=== PATIENT | female | born 1965 | race Caucasian/White ===

== ENCOUNTER 2025-07-06 13:58 | Emergency (ER) | payer OTHER ==
[~2025-07-06] VITALS: Ht 160 cm; Wt 68.0 kg
[2025-07-06 14:17] LABS: PLATELET COUNT (AUTO) 282 K/uL (179-408); RED BLOOD CELL COUNT(AUTO) 5.03 MIL/uL (3.63-4.92); RED CELL DISTRIBUTION WIDTH 13.3 % (12.3-17.7); WHITE BLOOD COUNT (AUTO) 7.0 K/uL (3.8-11.8)
[2025-07-06] MEDS ORDERED: ONDANSETRON 4 MG/2 ML VIAL ONE (14:21)
[2025-07-06] MEDS: ONDANSETRON 4 MG/2 ML VIAL IV ONE (14:24)
[2025-07-06 14:29] LABS: CREATININE 0.8 mg/dL (0.6-1.3); SODIUM SERUM 142 mmol/L (136-145); UREA NITROGEN, BLOOD 16 mg/dL (7-18)
[2025-07-06 14:41] LABS: ASPARTATE AMINOTRANSFERASE 14 U/L (15-37); TOTAL PROTEIN, SERUM 7.4 g/dL (6.4-8.2)
[2025-07-06] MEDS: IV NORMAL SALINE 1000 ML BAG IV ONE (14:55)
[2025-07-06 15:00] VITALS: BP 136/82
[2025-07-06] MEDS ORDERED: BUPR-319 PO (15:15)
[2025-07-06] MEDS ORDERED: AMLO-212 PO (15:15)
[2025-07-06] MEDS ORDERED: GABA-532 PO (15:15)
[2025-07-06] MEDS ORDERED: METF-442 PO (15:15)
[2025-07-06] MEDS ORDERED: MELO-107 PO (15:15)
[2025-07-06] MEDS ORDERED: ESCI10TA PO (15:15)
[2025-07-06] MEDS ORDERED: BENA10TA74 PO (15:15)
[2025-07-06] MEDS ORDERED: SOLI5TAB2 PO (15:15)
[2025-07-06] MEDS ORDERED: LEVO50TA8 PO (15:15)
[2025-07-06] MEDS ORDERED: CHOL2000 PO (15:15)
[2025-07-06] MEDS ORDERED: EMPA10TA PO (15:15)
[2025-07-06] MEDS ORDERED: CYCL5TAB PO (15:15)
[2025-07-06] MEDS ORDERED: ATOR10TA PO (15:15)
[2025-07-06 17:02] VITALS: BP 129/77; O2SAT 96
== END 2025-07-06 16:30 | disposition home or self-care (01) ==
LOC: ER 13:58
DX: R55 Syncope and collapse (principal); I11.9 Hypertensive heart disease without heart failure; E11.9 Type 2 diabetes mellitus without complications; E03.9 Hypothyroidism, unspecified; F32.A Depression, unspecified; Z79.1 Long term (current) use of non-steroidal anti-inflammatories (NSAID); Z79.84 Long term (current) use of oral hypoglycemic drugs; Z79.890 Hormone replacement therapy; Z79.899 Other long term (current) drug therapy; W22.03XA Walked into furniture, initial encounter; Y93.89 Activity, other specified; Y92.89 Other specified places as the place of occurrence of the external cause; Y99.9 Unspecified external cause status
CPT/HCPCS: 99285; 70450; 96374; 71045; 96361; 80076; 80048; 85025; 85730; 84484; 36415; 72125; 93005; J2405; J7040; A4606; A4663